=== PATIENT | male | born 1990 | race Two or more races ===

== ENCOUNTER 2018-05-13 13:42 | Emergency (ER) | payer BC ==
--- NOTE | 2018-05-13 14:46 | EDM.PDOC ---
ED HPI GENERAL MEDICAL PROBLEM - General Chief Complaint: Flank Pain Stated Complaint: ABDOMINAL PAIN Time Seen by Provider: 05/13/18 14:15 Source of Information: Reports: Patient History Limitations: Reports: No Limitations - History of Present Illness INITIAL COMMENTS - FREE TEXT/NARRATIVE: 28 yo male presents for one week of RUQ pain radiating to his back. He believes this is a chronic condition and has had this same pain intermittently since he was 8 years old. He believes when he was younger it happened much more frequently and now it usually comes once a year. He is not currently feeling the pain. When he does experience it he reports associated nausea, vomiting and diarrhea. He said he may have some urinary discomfort as well when the pain is bothering him. He denies any blood in the stool or urine and has not found anything that relieves the pain. He believes eating may worsen the pain. He moved here from [place] 6 years ago and does not have a PCP. He reports never being seen by a doctor and no previous surgeries. He admits to low water intake but said this is normal for him. He ate and drank this morning and has had no nausea or vomiting today. Duration: Chronic (intermittent for approx 20 years) Location: Reports: Abdomen (RUQ pain) Quality: Reports: Ache, Stabbing Severity: Moderate Improves with: Reports: None Worsens with: Reports: Eating Associated Symptoms: Reports: Nausea/Vomiting, Other (diarrhea) Right Flank Pain Score (Numeric/FACES): 4 - Related Data Allergies Allergy/AdvReac Type Severity Reaction Status Date / Time No Known Allergies Allergy Verified 05/13/18 13:51 Home Meds: Home Meds Ciprofloxacin HCl [Cipro] 500 mg PO BID 10 Days #20 tablet 05/13/18 [Rx] Doxycycline [Vibramycin] 100 mg PO BID 30 Days #60 cap 05/13/18 [Rx] Past Medical History - Past Health History Medical/Surgical History: Denies Medical/Surgical History Social & Family History - Family History Family Medical History: Noncontributory - Tobacco Use Smoking Status *Q: Never Smoker - Caffeine Use Caffeine Use: Reports: Coffee - Recreational Drug Use Recreational Drug Use: No ED ROS GENERAL - Review of Systems Review Of Systems: See Below Constitutional: Reports: No Symptoms. Denies: Fever, Chills, Malaise, Weakness , Night Sweats HEENT: Reports: No Symptoms Respiratory: Reports: No Symptoms Cardiovascular: Reports: No Symptoms Endocrine: Reports: No Symptoms GI/Abdominal: Reports: Abdominal Pain, Diarrhea, Nausea, Vomiting. Denies: Bloody Stool, Constipation, Difficulty Swallowing : Reports: Dysuria, Flank Pain. Denies: Frequency, Hematuria Musculoskeletal: Reports: No Symptoms Skin: Reports: No Symptoms Neurological: Reports: No Symptoms. Denies: Dizziness, Headache Psychiatric: Reports: No Symptoms Hematologic/Lymphatic: Reports: No Symptoms Immunologic: Reports: No Symptoms ED EXAM, GI/ABD - Physical Exam Exam: See Below Exam Limited By: No Limitations General Appearance: Alert, WD/WN, No Apparent Distress Head: Atraumatic, Normocephalic Respiratory/Chest: No Respiratory Distress, Lungs Clear, Normal Breath Sounds, No Accessory Muscle Use Cardiovascular: Normal Peripheral Pulses, Regular Rate, Rhythm, No Edema, No Gallop, No Murmur, No Rub GI/Abdominal Exam: Normal Bowel Sounds, Soft, Non-Tender, Other (negative Tello sign). No: Guarding, Rebound Back Exam: Normal Inspection. No: CVA Tenderness (L), CVA Tenderness (R) Extremities: Normal Inspection Neurological: Alert, Oriented, Normal Cognition, Normal Gait, No Motor/Sensory Deficits Psychiatric: Normal Affect, Normal Mood Skin Exam: Warm, Dry, Intact, Normal Color Course - Vital Signs Last Recorded V/S: Last Vital Signs Temp 100 F 05/13/18 13:49 Pulse 99 05/13/18 13:49 Resp 18 05/13/18 13:49 BP 144/91 H 05/13/18 13:49 Pulse Ox 98 05/13/18 13:49 - Orders/Labs/Meds Orders: Active Orders 24 hr Category Date Time Status Abdomen 1V Flat [CR] Stat Exams 05/13/18 14:32 Taken UA W/MICROSCOPIC [URIN] Stat Lab 05/13/18 14:10 Ordered Labs: Laboratory Tests 05/13/18 05/13/18 05/13/18 Range/Units 14:10 14:10 14:10 WBC 12.76 H (4.23-9.07) K/mm3 RBC 5.70 (4.63-6.08) M/mm3 Hgb 16.9 (13.7-17.5) gm/L Hct 48.6 (40.1-51.0) % MCV 85.3 (79.0-92.2) fl MCH 29.6 (25.7-32.2) pg MCHC 34.8 (32.2-35.5) g/dl RDW Std Deviation 41.2 (35.1-43.9) fL Plt Count 306 (163-337) K/mm3 MPV 9.0 L (9.4-12.3) fl Neut % (Auto) 57.7 (34.0-67.9) % Lymph % (Auto) 30.2 (21.8-53.1) % [place] % (Auto) 10.2 (5.3-12.2) % Eos % (Auto) 0.9 (0.8-7.0) Baso % (Auto) 0.4 (0.1-1.2) % Neut # (Auto) 7.37 H (1.78-5.38) K/mm3 Lymph # (Auto) 3.85 H (1.32-3.57) K/mm3 [place] # (Auto) 1.30 H (0.30-0.82) K/mm3 Eos # (Auto) 0.11 (0.04-0.54) K/mm3 Baso # (Auto) 0.05 (0.01-0.08) K/mm3 Sodium 137 (136-145) mEq/L Potassium 4.0 (3.5-5.1) mEq/L Chloride 100 (98-107) mEq/L Carbon Dioxide 29 (21-32) mEq/L Anion Gap 12.0 (5-15) BUN 16 (7-18) mg/dL Creatinine 1.1 (0.7-1.3) mg/dL Est Cr Clr Drug Dosing 104.58 mL/min Estimated GFR (MDRD) > 60 (>60) mL/min BUN/Creatinine Ratio 14.5 (14-18) Glucose 110 H (74-106) mg/dL Calcium 9.1 (8.5-10.1) mg/dL Total Bilirubin 0.5 (0.2-1.0) mg/dL AST 23 (15-37) U/L ALT 47 (16-63) U/L Alkaline Phosphatase 87 (46-116) U/L Total Protein 8.9 H (6.4-8.2) g/dl Albumin 4.3 (3.4-5.0) g/dl Globulin 4.6 gm/dL Albumin/Globulin Ratio 0.9 L (1-2) Amylase 39 (25-115) U/L Lipase 153 (73-393) U/L Urine Color Light yellow (Yellow) Urine Appearance Slt cloudy H (Clear) Urine pH 7.0 (5.0-8.0) Ur Specific [place] 1.025 (1.005-1.030) Urine Protein Trace H (Negative) Urine Glucose (UA) Negative (Negative) Urine Ketones Negative (Negative) Urine Occult Blood 1+ H (Negative) Urine Nitrite Negative (Negative) Urine Bilirubin Negative (Negative) Urine Urobilinogen 0.2 (0.2-1.0) Ur Leukocyte Esterase 2+ H (Negative) Urine RBC 5-10 H (0-5) /hpf Urine WBC Too numerous to cnt H (0-5) /hpf Urine WBC Clumps Moderate (NOT SEEN) /hpf Ur Epithelial Cells Not seen (0-5) /hpf Urine Bacteria Few (FEW) /hpf Urine Mucus Not seen (FEW) /hpf - Re-Assessments/Exams Free Text/Narrative Re-Assessment/Exam: 14:25 - chronic vs acute process. Kidney Stone vs UTI vs Gallstones vs gastroenteritis. Ordered UA, CBC, CMP, Lipase/Amylase and KUB. Pt resting comfortably, denies current pain. Departure - Departure Time of Disposition: 15:46 Disposition: Home, Self-Care 01 Condition: Good Clinical Impression: Prostatitis, acute - Discharge Information Prescriptions: Ciprofloxacin HCl [Cipro] 500 mg PO BID 10 Days #20 tablet Doxycycline [Vibramycin] 100 mg PO BID 30 Days #60 cap Instructions: Prostatitis Referrals: PCP,None [Primary Care Provider] - Forms: ED Department Discharge Additional Instructions: ED HPI GENERAL MEDICAL PROBLEM - General Chief Complaint: Flank Pain Stated Complaint: ABDOMINAL PAIN Time Seen by Provider: 05/13/18 14:15 Source of Information: Reports: Patient History Limitations: Reports: No Limitations - History of Present Illness INITIAL COMMENTS - FREE TEXT/NARRATIVE: 28 yo male presents for one week of RUQ pain radiating to his back. He believes this is a chronic condition and has had this same pain intermittently since he was 8 years old. He believes when he was younger it happened much more frequently and now it usually comes once a year. He is not currently feeling the pain. When he does experience it he reports associated nausea, vomiting and diarrhea. He said he may have some urinary discomfort as well when the pain is bothering him. He denies any blood in the stool or urine and has not found anything that relieves the pain. He believes eating may worsen the pain. He moved here from [place] 6 years ago and does not have a PCP. He reports never being seen by a doctor and no previous surgeries. He admits to low water intake but said this is normal for him. He ate and drank this morning and has had no nausea or vomiting today. Duration: Chronic (intermittent for approx 20 years) Location: Reports: Abdomen (RUQ pain) Quality: Reports: Ache, Stabbing Severity: Moderate Improves with: Reports: None Worsens with: Reports: Eating Associated Symptoms: Reports: Nausea/Vomiting, Other (diarrhea) Right Flank Pain Score (Numeric/FACES): 4 - Related Data Allergies Allergy/AdvReac Type Severity Reaction Status Date / Time No Known Allergies Allergy Verified 05/13/18 13:51 Home Meds: Home Meds Ciprofloxacin HCl [Cipro] 500 mg PO BID 10 Days #20 tablet 05/13/18 [Rx] Doxycycline [Vibramycin] 100 mg PO BID 30 Days #60 cap 05/13/18 [Rx] Past Medical History - Past Health History Medical/Surgical History: Denies Medical/Surgical History Social & Family History - Family History Family Medical History: Noncontributory - Tobacco Use Smoking Status *Q: Never Smoker - Caffeine Use Caffeine Use: Reports: Coffee - Recreational Drug Use Recreational Drug Use: No ED ROS GENERAL - Review of Systems Review Of Systems: See Below Constitutional: Reports: No Symptoms. Denies: Fever, Chills, Malaise, Weakness , Night Sweats HEENT: Reports: No Symptoms Respiratory: Reports: No Symptoms Cardiovascular: Reports: No Symptoms Endocrine: Reports: No Symptoms GI/Abdominal: Reports: Abdominal Pain, Diarrhea, Nausea, Vomiting. Denies: Bloody Stool, Constipation, Difficulty Swallowing : Reports: Dysuria, Flank Pain. Denies: Frequency, Hematuria Musculoskeletal: Reports: No Symptoms Skin: Reports: No Symptoms Neurological: Reports: No Symptoms. Denies: Dizziness, Headache Psychiatric: Reports: No Symptoms Hematologic/Lymphatic: Reports: No Symptoms Immunologic: Reports: No Symptoms ED EXAM, GI/ABD - Physical Exam Exam: See Below Exam Limited By: No Limitations General Appearance: Alert, WD/WN, No Apparent Distress Head: Atraumatic, Normocephalic Respiratory/Chest: No Respiratory Distress, Lungs Clear, Normal Breath Sounds, No Accessory Muscle Use Cardiovascular: Normal Peripheral Pulses, Regular Rate, Rhythm, No Edema, No Gallop, No Murmur, No Rub GI/Abdominal Exam: Normal Bowel Sounds, Soft, Non-Tender, Other (negative Tello sign). No: Guarding, Rebound Back Exam: Normal Inspection. No: CVA Tenderness (L), CVA Tenderness (R) Extremities: Normal Inspection Neurological: Alert, Oriented, Normal Cognition, Normal Gait, No Motor/Sensory Deficits Psychiatric: Normal Affect, Normal Mood Skin Exam: Warm, Dry, Intact, Normal Color Course - Vital Signs Last Recorded V/S: Last Vital Signs Temp 100 F 05/13/18 13:49 Pulse 99 05/13/18 13:49 Resp 18 05/13/18 13:49 BP 144/91 H 05/13/18 13:49 Pulse Ox 98 05/13/18 13:49 - Orders/Labs/Meds Orders: Active Orders 24 hr Category Date Time Status Abdomen 1V Flat [CR] Stat Exams 05/13/18 14:32 Taken UA W/MICROSCOPIC [URIN] Stat Lab 05/13/18 14:10 Ordered Labs: Laboratory Tests 05/13/18 05/13/18 05/13/18 Range/Units 14:10 14:10 14:10 WBC 12.76 H (4.23-9.07) K/mm3 RBC 5.70 (4.63-6.08) M/mm3 Hgb 16.9 (13.7-17.5) gm/L Hct 48.6 (40.1-51.0) % MCV 85.3 (79.0-92.2) fl MCH 29.6 (25.7-32.2) pg MCHC 34.8 (32.2-35.5) g/dl RDW Std Deviation 41.2 (35.1-43.9) fL Plt Count 306 (163-337) K/mm3 MPV 9.0 L (9.4-12.3) fl Neut % (Auto) 57.7 (34.0-67.9) % Lymph % (Auto) 30.2 (21.8-53.1) % [place] % (Auto) 10.2 (5.3-12.2) % Eos % (Auto) 0.9 (0.8-7.0) Baso % (Auto) 0.4 (0.1-1.2) % Neut # (Auto) 7.37 H (1.78-5.38) K/mm3 Lymph # (Auto) 3.85 H (1.32-3.57) K/mm3 [place] # (Auto) 1.30 H (0.30-0.82) K/mm3 Eos # (Auto) 0.11 (0.04-0.54) K/mm3 Baso # (Auto) 0.05 (0.01-0.08) K/mm3 Sodium 137 (136-145) mEq/L Potassium 4.0 (3.5-5.1) mEq/L Chloride 100 (98-107) mEq/L Carbon Dioxide 29 (21-32) mEq/L Anion Gap 12.0 (5-15) BUN 16 (7-18) mg/dL Creatinine 1.1 (0.7-1.3) mg/dL Est Cr Clr Drug Dosing 104.58 mL/min Estimated GFR (MDRD) > 60 (>60) mL/min BUN/Creatinine Ratio 14.5 (14-18) Glucose 110 H (74-106) mg/dL Calcium 9.1 (8.5-10.1) mg/dL Total Bilirubin 0.5 (0.2-1.0) mg/dL AST 23 (15-37) U/L ALT 47 (16-63) U/L Alkaline Phosphatase 87 (46-116) U/L Total Protein 8.9 H (6.4-8.2) g/dl Albumin 4.3 (3.4-5.0) g/dl Globulin 4.6 gm/dL Albumin/Globulin Ratio 0.9 L (1-2) Amylase 39 (25-115) U/L Lipase 153 (73-393) U/L Urine Color Light yellow (Yellow) Urine Appearance Slt cloudy H (Clear) Urine pH 7.0 (5.0-8.0) Ur Specific [place] 1.025 (1.005-1.030) Urine Protein Trace H (Negative) Urine Glucose (UA) Negative (Negative) Urine Ketones Negative (Negative) Urine Occult Blood 1+ H (Negative) Urine Nitrite Negative (Negative) Urine Bilirubin Negative (Negative) Urine Urobilinogen 0.2 (0.2-1.0) Ur Leukocyte Esterase 2+ H (Negative) Urine RBC 5-10 H (0-5) /hpf Urine WBC Too numerous to cnt H (0-5) /hpf Urine WBC Clumps Moderate (NOT SEEN) /hpf Ur Epithelial Cells Not seen (0-5) /hpf Urine Bacteria Few (FEW) /hpf Urine Mucus Not seen (FEW) /hpf - Re-Assessments/Exams Free Text/Narrative Re-Assessment/Exam: 14:25 - chronic vs acute process. Kidney Stone vs UTI vs Gallstones vs gastroenteritis. Ordered UA, CBC, CMP, Lipase/Amylase and KUB. Pt resting comfortably, denies current pain. Departure - Departure Time of Disposition: 15:46 Disposition: Home, Self-Care 01 Condition: Good Clinical Impression: Prostatitis, acute - Discharge Information Prescriptions: Ciprofloxacin HCl [Cipro] 500 mg PO BID 10 Days #20 tablet Doxycycline [Vibramycin] 100 mg PO BID 30 Days #60 cap Instructions: Prostatitis Referrals: PCP,None [Primary Care Provider] - Forms: ED Department Discharge - My Orders Last 24 Hours: My Active Orders 05/13/18 14:10 UA W/MICROSCOPIC [URIN] Stat 05/13/18 14:32 Abdomen 1V Flat [CR] Stat - Assessment/Plan Last 24 Hours: My Active Orders 05/13/18 14:10 UA W/MICROSCOPIC [URIN] Stat 05/13/18 14:32 Abdomen 1V Flat [CR] Stat You were seen today for suspected acute prostatitis. Please take the full course of antibiotics to prevent recurrence of the infection. Take Tylenol or Ibuprofen as needed Care Plan Goals: Take Cipro 500 twice per day for 10 days and Doxycycline 100 twice per day x 1 month. Start both medications at the same time. Follow up with Primary Care or Urgent care for repeat urine analysis.
--- NOTE | 2018-05-15 16:06 | CR ---
Abdomen: Supine view of the abdomen was obtained. Comparison: No previous exam. Bowel gas pattern appears within normal limits. No abnormal calcifications or soft tissue abnormality is seen. Bony structures are unremarkable for the patient's age. Impression: 1. Nothing acute is seen on supine abdominal x-ray. Diagnostic code #1
== END 2018-05-13 17:14 | disposition home or self-care (01) ==
LOC: JD.ED 13:42
DX: N41.0 Acute prostatitis (principal)
CPT/HCPCS: 36415; 74018; 74018-26; 80053; 81001; 82150; 83690; 85025; 99283; 99284